=== PATIENT | female | born 1950 | race Caucasian/White ===

== ENCOUNTER → 2017-07-22 | Outpatient (CLI) | payer MEDICARE ==
--- NOTE | 2017-07-22 07:59 | US ---
EXAMINATION TYPE: US duplex aorta DATE OF EXAM: 07/22/2017 COMPARISON: NONE CLINICAL HISTORY: Z13.6 Screening for aneurysm,. EXAM MEASUREMENTS: Abdominal Aorta: Proximal: 1.9cm Mid: 1.8cm Distal: 1.5cm Bifurcation: 1.1cm 1.1cm Small portion of prox and mid obscured by bowel gas. No AAA. Aorta is visualized through bifurcation without suspicious dilatation. IMPRESSION: No convincing ultrasound evidence for abdominal aortic aneurysm.
[2017-07-22 08:06] LABS: Basophils % (A) 0 %; CH 28.7; Eosinophils # (A) 0.1 k/uL (0-0.7); Eosinophils % (A) 2 %; HCT 45.3 % (34.0-46.0); HDW 2.37; HGB 14.1 gm/dL (11.4-16.0); Luc # (Auto) 0.07; Luc % (Auto) 1; Lymphocytes # (A) 1.4 k/uL (1.0-4.8); Lymphocytes % (A) 20 %; MCH 28.2 pg (25.0-35.0); MCHC 31.2 g/dL (31.0-37.0); MCV 90.4 fL (80.0-100.0); Monocytes # (A) 0.4 k/uL (0-1.0); Monocytes % (A) 5 %; Neutrophils # (A) 5.2 k/uL (1.3-7.7); Neutrophils % (A) 73 %; RBC 5.02 m/uL (3.80-5.40); RDW 14.9 % (11.5-15.5); WBC 7.2 k/uL (3.8-10.6); WBC (Perox) 7.37
[2017-07-22 08:17] LABS: ALT 29 U/L (9-52); AST 19 U/L (14-36); Alkaline Phosphatase 28 U/L (38-126); Anion Gap 8 mmol/L; Blood Urea Nitrogen 20 mg/dL (7-17); Calcium 10.2 mg/dL (8.4-10.2); Carbon Dioxide 28 mmol/L (22-30); Chloride 106 mmol/L (98-107); Cholesterol 148 mg/dL (<200); Glucose 100 mg/dL (74-99); HDL Cholesterol 51 mg/dL (40-60); Non-African American GFR(MDRD) 54 (>60 ml/min/1.73 sqM); Sodium 142 mmol/L (137-145); Total Bilirubin 0.4 mg/dL (0.2-1.3)
--- NOTE | 2017-07-23 10:46 | MM ---
Reason for exam: screening (asymptomatic). Last mammogram was performed 1 year and 1 month ago. History: Patient is postmenopausal. Family history of breast cancer in aunt and breast cancer in grandmother. Took hormonal contraceptives for 10 years. Took estrogen for 2 years 2 months. Physical Findings: A clinical breast exam by your physician is recommended on an annual basis and results should be correlated with mammographic findings. MG 3D Screening Mammo W/Cad Bilateral CC and MLO view(s) were taken. Prior study comparison: June 19, 2016, bilateral MG screening mammo w CAD. May 12, 2014, bilateral MG screening mammo w CAD. The breast tissue is heterogeneously dense. This may lower the sensitivity of mammography. Finding: There are typically benign round calcifications in the right breast. There is no discrete abnormality. ASSESSMENT: Negative, BI-RAD 1 RECOMMENDATION: Routine screening mammogram of both breasts in 1 year.
== END | disposition home or self-care (01) ==
LOC: RADUSWWP 07:05
PROVIDERS: ATTEND Family Medicine
DX: Z12.31 Encounter for screening mammogram for malignant neoplasm of breast (principal); Z13.6 Encounter for screening for cardiovascular disorders; I10 Essential (primary) hypertension; E78.00 Pure hypercholesterolemia, unspecified; M81.0 Age-related osteoporosis without current pathological fracture
CPT/HCPCS: 80061; 80053; 84443; 85025; 82306; 77063; 93979; 36415; G0202

== ENCOUNTER → 2018-11-05 | Outpatient (CLI) | payer MEDICARE ==
--- NOTE | 2018-11-05 12:20 | BD ---
EXAMINATION TYPE: Axial Bone Density DATE OF EXAM: 11/05/2018 COMPARISON: 05.12.2014 CLINICAL HISTORY: 68 YR OLD FEMALE....ICD-10 CODE: N81.0 OSTEOPOROSIS Height: 61.6 Weight: 185 FRAX RISK QUESTIONS: Family History (Parent hip fracture): NO FX. History of Fracture in Adulthood: YES 3. Menopause before 45: AT 47 RISK FACTORS HISTORY OF: HX OF LT FOOT FX...AT AGE 67 HX OF BROKEN CLAVICLE AT AGE 7 Family History of Osteoporosis: YES, HER MOTHER Active: YES Postmenopausal woman: YES AT ABOUT 47 YRS OLD, TOTAL HYST Take estrogen and/or progesterone medications: IN PAST FOR ABOUT 3 YRS MEDICATIONS: Osteoporosis Medications: FOSAMAX IN PAST....STOPPED 3 YRS AGO Additional Medications: BP MEDS, REFLUX MEDS, STATIN FOR CHOLESTEROL, VIT D AND CALCIUM, MULTIVITAMIN Additional History: HYPERTENSION, CHOLESTEROL EXAM MEASUREMENTS: Bone mineral densitometry was performed using the [employer]. Bone mineral density as measured about the Lumbar spine is: ----- L1-L4(G/cm2): 1.151 T Score Values are as follows: ----- L1: -0.4 ----- L2: -0.2 ----- L3: -0.1 ----- L4: -0.4 ----- L1-L4: -0.2 Bone mineral density has: Increased 2.6% since study of: 05.12.2014 Bone mineral density about the R hip (g/cm2): 1.014 Bone mineral density about the L hip (g/cm2): 0.946 T Score values are as follows: -----R Neck: -0.5 -----L Neck: -1.2 -----R Total: 0.1 -----L Total: -0.5 Bone mineral density has: Decreased -1.2% since study of: 05.12.2014 FRAX%s: THERE IS A 13.4% CHANCE FOR A MAJOR OSTEOPOROTIC FX AND A 1.2% FOR HIP.....PROBABILITY OF FX IN 10 YRS TIME IMPRESSION: Osteopenia (T Score between -2.5 and -1) remains present femoral neck level left hip. There is slightly increased risk of fracture and the patient may be considered for treatment. Re-Screen 2-5 years. NOTE: T-SCORE=SD OF THE YOUNG ADULT MEAN.
--- NOTE | 2018-11-06 10:50 | MM ---
Reason for exam: screening (asymptomatic). Last mammogram was performed 1 year and 3 months ago. History: Patient is postmenopausal and history of other cancer. Family history of breast cancer in maternal aunt and breast cancer in maternal grandmother. Took hormonal contraceptives for 10 years. Took estrogen for 2 years 2 months. Physical Findings: A clinical breast exam by your physician is recommended on an annual basis and results should be correlated with mammographic findings. MG Screening Mammo w CAD Bilateral CC and MLO view(s) were taken. Prior study comparison: July 22, 2017, bilateral MG 3d screening mammo w/cad. June 19, 2016, bilateral MG screening mammo w CAD. The breast tissue is heterogeneously dense. This may lower the sensitivity of mammography. Finding #1: There is a 5 mm high density mass in the outer quadrant, central position of the left breast. Finding #2: There are typically benign calcifications in the right breast. ASSESSMENT: Incomplete: need additional imaging evaluation, BI-RAD 0 RECOMMENDATION: Special view mammogram of the left breast. If lesion persists on supplemental views, image directed ultrasound is recommended. [facility] will attempt to contact patient to return for supplemental views and ultrasound if indicated.
== END ==
LOC: RADMAMWWP 09:13
PROVIDERS: ATTEND Family Medicine
DX: Z12.31 Encounter for screening mammogram for malignant neoplasm of breast (principal); M85.852 Other specified disorders of bone density and structure, left thigh
CPT/HCPCS: 77067; 77080

== ENCOUNTER → 2018-11-18 | Outpatient (CLI) | payer MEDICARE ==
--- NOTE | 2018-11-19 08:44 | MM ---
Reason for exam: additional evaluation requested from abnormal screening. Last mammogram was performed less than 1 month ago. History: Patient is postmenopausal and history of other cancer. Family history of breast cancer in maternal aunt and breast cancer in maternal grandmother. Took hormonal contraceptives for 10 years. Took estrogen for 2 years 2 months. Physical Findings: Nurse did not find any significant physical abnormalities on exam. MG Work Up Mamm w CAD LT Spot compression CC and LM view(s) were taken of the left breast. Prior study comparison: November 05, 2018, bilateral MG screening mammo w CAD. July 22, 2017, bilateral MG 3d screening mammo w/cad. The breast tissue is heterogeneously dense. This may lower the sensitivity of mammography. There is a 4mm mass 7cm from nipple in the left upper outer quadrant, persists on additional views. These results were verbally communicated with the patient and result sheet given to the patient on 11/18/18. ASSESSMENT: Incomplete: need additional imaging evaluation, BI-RAD 0 RECOMMENDATION: Ultrasound of the left breast.
--- NOTE | 2018-11-19 08:46 | USB ---
Reason for exam: additional evaluation requested from abnormal screening. History: Patient is postmenopausal and history of other cancer. Family history of breast cancer in maternal aunt and breast cancer in maternal grandmother. Took hormonal contraceptives for 10 years. Took estrogen for 2 years 2 months. US Breast Workup Limited LT Left limited breast ultrasound including focal area of concern, retroareolar and axilla demonstrates several oval, lymph nodes measuring 7 x 4 x 6mm at 3 o'clock, 6mm at the axilla tail, 7mm at 2 o'clock, 6mm at 2 o'clock and a 4 x 1 x 3mm oval, cystic lesion at 1 o'clock that corresponds to mammographic abnormality. These results were verbally communicated with the patient and result sheet given to the patient on 11/18/18. ASSESSMENT: Benign, BI-RAD 2 RECOMMENDATION: Return to routine screening mammogram schedule for both breasts.
== END | disposition home or self-care (01) ==
LOC: RADMAMWWP 14:23
PROVIDERS: ATTEND Family Medicine
DX: R92.8 Other abnormal and inconclusive findings on diagnostic imaging of breast (principal)
CPT/HCPCS: 77065